=== PATIENT | male | born 1955 ===

== ENCOUNTER 2017-05-06 11:38 | Emergency (ER) | payer BC ==
--- NOTE | 2017-05-06 14:13 | RAD ---
INDICATION: Prepatellar pain and effusion. TECHNIQUE: 4 views of the left knee were obtained. FINDINGS: The bones are normal alignment. There is a moderate joint effusion present. No fracture is seen. There is mild osteoarthritic change in the lateral compartment and severe osteoarthritic change in the patellofemoral compartment. There is calcification within the medial collateral ligament consistent with chronic injury. IMPRESSION: 1. JOINT EFFUSION. 2. SEVERE OSTEOARTHRITIC CHANGE IN THE PATELLOFEMORAL COMPARTMENT.
[2017-05-06 14:44] VITALS: BP 142/79
--- NOTE | 2017-05-06 15:01 | UC ---
Knee Pain HPI - HPI Summary HPI Summary: FOUR DAYS OF LEFT KNEE PAIN AND SWELLING. HISTORY OF GOUT. NO KNOWN TRAUMA. NO PREVIOUS INJURY TO LEFT KNEE. - History of Current Complaint Chief Complaint: UCLowerExtremity Stated Complaint: LEFT KNEE PAIN Time Seen by Provider: 05/06/17 13:20 Hx Obtained From: Patient Onset/Duration: Gradual Onset, Lasting Days, Still Present Severity Initially: Mild Severity Currently: Mild Character: Dull, Aching, Stiffness Aggravating Factor(s): Movement, Weight Bearing, Prolonged Standing Alleviating Factor(s): Rest, Position Associated Signs And Symptoms: Positive: Swelling - Risk Factors Septic Arthritis Risk Factor: Negative Gout Risk Factor: Negative - Allergies/Home Medications Allergies/Adverse Reactions: Allergies Allergy/AdvReac Type Severity Reaction Status Date / Time Phenytoin [From Dilantin] Allergy Rash Verified 05/06/17 13:30 Home Medications: Home Medications Aspirin [Aspirin 81 MG TAB] 81 mg PO DAILY 05/06/17 [History Confirmed 05/06/17] Bupropion HCl [Wellbutrin Sr] 150 mg PO BID 05/06/17 [History Confirmed 05/06/17 ] Cholecalciferol [Vitamin D] 1,000 unit PO QAM 05/06/17 [History Confirmed ] Fluoxetine HCl [Prozac] 40 mg PO DAILY 05/06/17 [History Confirmed 05/06/17] Metoprolol Tartrate TAB* [Lopressor TAB*] 25 mg PO SEE INSTRUCTIONS 05/06/17 [ History Confirmed 05/06/17] Nortriptyline HCl [Pamelor] 50 mg PO QPM 05/06/17 [History Confirmed 05/06/17] Over 50 Multivitamin 1 tab PO DAILY 05/06/17 [History Confirmed 05/06/17] PMH/Surg Hx/FS Hx/Imm Hx Previously Healthy: Yes - Surgical History Surgical History: Yes Surgery Procedure, Year, and Place: VASTECOMY; GALLBLADDER; CARDIAC CATH- NO STENTING - Family History Known Family History: Positive: Other - GOUT - Social History Occupation: Retired Lives: With Family Alcohol Use: None Substance Use Type: None Smoking Status (MU): Former Smoker When Did the Patient Quit Smoking/Using Tobacco: 1980s Review of Systems Constitutional: Negative Skin: Negative Eyes: Negative ENT: Negative Respiratory: Negative Cardiovascular: Negative Gastrointestinal: Negative Genitourinary: Negative Motor: Negative Neurovascular: Negative Musculoskeletal: Arthralgia, Edema, Myalgia Neurological: Negative Psychological: Negative Is Patient Immunocompromised?: No All Other Systems Reviewed And Are Negative: Yes Physical Exam Triage Information Reviewed: Yes Appearance: Well-Appearing, No Pain Distress, Well-Nourished Vital Signs: Initial Vital Signs Temp 99.1 F 05/06/17 13:22 Pulse 82 05/06/17 13:22 Resp 22 05/06/17 13:22 BP 142/79 05/06/17 13:22 Vital Signs Reviewed: Yes Eye Exam: Normal ENT Exam: Normal Dental Exam: Normal Neck exam: Normal Neck: Positive: Supple, Nontender Respiratory Exam: Normal Respiratory: Positive: Chest non-tender, Lungs clear, Normal breath sounds, No respiratory distress Cardiovascular Exam: Normal Cardiovascular: Positive: RRR, No Murmur, Pulses Normal Abdominal Exam: Normal Musculoskeletal: Positive: Strength Intact, ROM Intact, Edema @ - INFERIOT MEDIAL AND LATERAL PATELLA Neurological Exam: Normal Psychological Exam: Normal Skin Exam: Normal Knee Pain Course/Dx - Differential Dx/Diagnosis Differential Diagnosis/HQI/PQRI: Fracture (Closed), Gout, Internal Derangement Of Knee, Infection, Sprain, Strain Provider Diagnoses: LEFT KNEE EFFUSION; PATELLOFEMORAL OSTEOARTHRITIS Discharge - Discharge Plan Condition: Stable Disposition: INTERMEDIATE CARE FACILITY Prescriptions: Indomethacin CAP* [Indocin CAP*] 50 mg PO TID PRN #15 cap PRN Reason: Pain Patient Education Materials: Swollen Knee Joint (ED) Referrals: Miky Roberto MD [Medical Doctor] - Patience Paige NP [Nurse Practitioner] - Additional Instructions: PLEASE FOLLOW UP WITH ORTHOPEDICS TO EVALUATE SWOLLEN KNEE. IF YOU HAVE WORSENING FEVER, WARMTH REDNESS OR SIGNS OF INFECTION PROCEED PROMPTLY TO EMERGENCY DEPARTMENT FOR CONTINUED EVALUATION
== END 2017-05-06 14:56 ==
LOC: UCCORT 11:38
DX: M25.462 Effusion, left knee (principal); M17.12 Unilateral primary osteoarthritis, left knee; Z79.82 Long term (current) use of aspirin; Z90.49 Acquired absence of other specified parts of digestive tract; Z88.8 Allergy status to other drugs, medicaments and biological substances; Z87.891 Personal history of nicotine dependence
CPT/HCPCS: 99213; G0463